=== PATIENT | female | born 1980 | race Caucasian/White ===

== ENCOUNTER 2017-06-17 16:22 | Inpatient (IN) | payer OTHER ==
--- NOTE | 2017-06-17 20:20 | HP ---
CIWA Score - CIWA Score Nausea/Vomitin Muscle Tremors: 3 Anxiety: 3 Agitation: 2 Paroxysmal Sweats: 2 Orientation: 0-Oriented Tacttile Disturbances: 2-Mild Itch/Numbness/Burn Auditory Disturbances: 2-Mild Harshness/Frighten Visual Disturbances: 2-Mild Sensitivity Headache: 2-Mild CIWA-Ar Total Score: 20 Admission ROS BHS - HPI Chief Complaint: DEPENDENT ON ETOH ONLY Allergies/Adverse Reactions: Allergies Allergy/AdvReac Type Severity Reaction Status Date / Time No Known Allergies Allergy Verified 06/17/17 20:25 Exam Limitations: No Limitations - Ebola screening Have you traveled outside of the country in the last 21 days: No Have you had contact with anyone from an Ebola affected area: No Have you been sick,other than usual withdrawal symptoms: No Do you have a fever: No - Review of Systems Constitutional: See HPI, Malaise, Weakness EENT: reports: See HPI Respiratory: reports: See HPI Cardiac: reports: See HPI, Syncope GI: reports: See HPI, Nausea, Abdominal cramping : reports: See HPI Musculoskeletal: reports: See HPI, Muscle Pain, Muscle Weakness Integumentary: reports: See HPI, Flushing, Sweating Neuro: reports: See HPI, Headache, Tremors, Weakness Endocrine: reports: See HPI Hematology: reports: See HPI Psychiatric: reports: Judgement Intact, Orientated x3, Anxious, Depressed Patient History - Patient Medical History Hx Seizures: (NO BUT EPISODES OF SYNCOPE SEC. TO ETOH) Hx Liver Disease: Yes (H/O: ELEVATED LIVER ENZYMES) Hx Human Immunodeficiency Virus (HIV): No Hx Hepatitis C: No Hx Depression: Yes (AND ANXIETY) Hx Suicide Attempt: Yes (X 3) Other Medical History: PANIC ATTACKS - Patient Surgical History Past Surgical History: Yes Hx Section: Yes (X 1 IN 2011) - Reproductive History Patient is a Female of Child Bearing Age (11 -55 yrs old): Yes Last Menstrual Period: 06/04/17 Patient : No - Smoking Cessation Smoking history: Current every day smoker Have you smoked in the past 12 months: Yes Aproximately how many cigarettes per day: 10 Hx Chewing Tobacco Use: No Initiated information on smoking cessation: Yes 'Breaking Loose' booklet given: 06/17/17 - Substance & Tx. History Hx Alcohol Use: Yes Hx Substance Use: No Substance Use Type: Alcohol Hx Substance Use Treatment: Yes - Substances Abused Alcohol Route: Oral Frequency: Daily Amount used: VODKA 3/4 OF A L/D Age of first use: 15 Date of Last Use: 06/17/17 Family Disease History - Family Disease History Family History: Denies Admission Physical Exam [facility] - Physical General Appearance: Yes: No Apparent Distress, Nourished, Appropriately Dressed , Alcohol on Breath, Tremorous, Sweating, Anxious HEENTM: Yes: Hearing grossly Normal, Normocephalic, Normal Voice, MAD[place], Pharynx Normal Respiratory: Yes: Chest Non-Tender, Lungs Clear, Normal Breath Sounds, No Respiratory Distress, No Accessory Muscle Use Neck: Yes: No masses,lesions,Nodules, Supple, Trachea in good position Breast: Yes: Breast Exam Deferred, Axillae without masses Cardiology: Yes: Regular Rhythm, S1, S2, Tachycardia Abdominal: Yes: Normal Bowel Sounds, Non Tender, Flat, Soft Back: Yes: Normal Inspection Musculoskeletal: Yes: full range of Motion, Gait Steady, Pelvis Stable, Muscle Pain, Muscle weakness Extremities: Yes: Normal Capillary Refill, Normal Range of Motion, Non-Tender, Tremors Neurological: Yes: Fully Oriented, Alert, Motor Strength 5/5, Normal Response, Depressed Affect Integumentary: Yes: Warm, Moist Lymphatic: Yes: Within Normal Limits - Diagnostic (1) EtOH dependence Current Visit: Yes Status: Acute (2) Nicotine dependence Current Visit: Yes Status: Chronic Qualifiers: Nicotine product type: cigarettes Substance use status: uncomplicated Qualified Code(s): F17.210 - Nicotine dependence, cigarettes, uncomplicated (3) Anxiety and depression Current Visit: Yes Status: Chronic (4) Panic attacks Current Visit: Yes Status: Chronic Cleared for Admission [facility] - Detox or Rehab [facility] Level of Care: Medically Managed Detox Regimen/Protocol: Librium [facility] Breath Alcohol Content Breath Alcohol Content: 0.375 Vital Signs - Vital Signs Vital Signs Refused: No Temperature: 97.6 F Temperature Source: Oral Pulse Rate: 110 Respiratory Rate: 20 Blood Pressure: 124/86 BP Location: Left Arm Blood Pressure Position: Sitting - Height Height: 5 ft 6 in - Weight Weight: 134 lb Weight Measurement Method: Standing Scale Body Mass Index (BMI): 21.6 Urine Pregancy Test - Test Device Lot Number: [id number] Expiration Date: 12/30/18 - Control Horizontal Line in Upper Control Window?: Yes - Result Urine Test Results: Negative- NO Line Present Urine Drug Screen - Test Device Lot Number: [id number] Expiration Date: 03/01/19 - Control Is Test Valid: Yes - Results Drug Screen Negative: Yes
[2017-06-17 20:37] VITALS: BMI 21.6
[2017-06-17] MEDS ORDERED: LOPERAMIDE HCL 2 MG CAPSULE PO PRN (20:38)
[2017-06-17] MEDS ORDERED: diphenhydrAMINE HCL 50 MG CAPSULE PO PRN (20:38)
[2017-06-17] MEDS ORDERED: MAGNESIUM HYDROX 2400MG/30ML ORAL SUSPENSION 30 ML CUP PO PRN (20:38)
[2017-06-17] MEDS ORDERED: ACETAMINOPHEN 325 MG TABLET (FP) PO PRN (20:38)
[2017-06-17] MEDS ORDERED: IBUPROFEN 400 MG TABLET (FP) PO PRN (20:38)
[2017-06-17] MEDS ORDERED: MAG HYDROX/AL HYDROX/SIMETH 30 ML UNIT-DOSE CUP PO PRN (20:38)
[2017-06-17] MEDS ORDERED: NICOTINE POLACRILEX 2 MG GUM BUC PRN (20:38)
[2017-06-17] MEDS ORDERED: guaiFENesin/D-METHORPHAN HB 10 ML UNIT-DOSE CUPS PO PRN (20:38)
[2017-06-17] MEDS ORDERED: MAGNESIUM CITRATE 300 ML BOTTLE PO PRN (20:38)
[2017-06-17] MEDS ORDERED: P-EPHED 60MG/TRIPROLIDI 2.5MG TABLET PO PRN (20:38)
[2017-06-17] MEDS ORDERED: MENTHOL/PHENOL 1 EACH UD MM PRN (20:38)
[2017-06-17] MEDS: THIAMINE HCL 100 MG TABLET (FP) PO SCH (22:53)
[2017-06-17] MEDS: chlordiazePOXIDE HCL 25 MG CAPSULE PO SCH (22:53)
[2017-06-18] MEDS: chlordiazePOXIDE HCL 25 MG CAPSULE PO SCH ×4 (06:02→22:40)
[2017-06-18 10:33] LABS: MCH 32.7 pg (25.7-33.7); MCHC 33.3 g/dl (32.0-36.0); MEAN CELL VOLUME 98.1 fl (80-96); MEAN PLT VOLUME 7.6 fl (7.5-11.1); PLATELET COUNT 253 K/MM3 (134-434); RDW 15.8 % (11.6-15.6); WHITE BLOOD COUNT 4.7 K/mm3 (4.0-10.0)
--- NOTE | 2017-06-18 10:34 | PN ---
[facility] CIWA - CIWA Score Nausea/Vomitin-Mild Nausea/No Vomiting Muscle Tremors: 4-Moderate,w/Arms Extend Anxiety: 4-Mod. Anxious/Guarded Agitation: 3 Paroxysmal Sweats: 3 Orientation: 0-Oriented Tacttile Disturbances: 0-None Auditory Disturbances: 0-None Visual Disturbances: 0-None Headache: 0-None Present CIWA-Ar Total Score: 15 BHS Progress Note (SOAP) Subjective: Anxiety,tremors,sweating,interrupted sleep,restless Objective: 06/18/17 10:34 Vital Signs - 8 hr 06/18/17 06/18/17 03:30 06:41 Temperature 96.1 F L Pulse Rate 76 Respiratory 18 18 Rate Blood Pressure 101/62 Laboratory Last Values WBC 4.7 K/mm3 (4.0-10.0) 06/18/17 07:30 RBC 3.93 M/mm3 (3.60-5.2) 06/18/17 07:30 Hgb 12.8 GM/dL (10.7-15.3) 06/18/17 07:30 Hct 38.6 % (32.4-45.2) 06/18/17 07:30 MCV 98.1 fl (80-96) H 06/18/17 07:30 MCH 32.7 pg (25.7-33.7) 06/18/17 07:30 MCHC 33.3 g/dl (32.0-36.0) 06/18/17 07:30 RDW 15.8 % (11.6-15.6) H 06/18/17 07:30 Plt Count 253 K/MM3 (134-434) 06/18/17 07:30 MPV 7.6 fl (7.5-11.1) 06/18/17 07:30 labs noted Assessment: 06/18/17 10:34 Withdrawal sx. Plan: Continue detox
[2017-06-18 10:46] LABS: ALBUMIN 3.7 g/dl (3.4-5.0); ALK PHOS 43 U/L (45-117); ANION GAP 8 (8-16); BILIRUBIN,TOTAL 0.3 mg/dL (0.2-1.0); CALCIUM 8.2 mg/dL (8.5-10.1); CO2 26 mmol/L (21-32); CREATININE 0.8 mg/dL (0.55-1.02); GLUCOSE,RANDOM 81 mg/dL (74-106); SGOT/AST 110 U/L (15-37); SGPT/ALT 111 U/L (12-78); TOT PROT 6.6 g/dl (6.4-8.2)
[2017-06-18] MEDS: PRENATAL VITAMINS W/ FOLIC ACID TABLET (FP) PO SCH (10:50)
[2017-06-18] MEDS: NICOTINE 14 MG/24 HOURS TOPICAL PATCH TD SCH (10:51)
[2017-06-18] MEDS: hydrOXYzine PAMOATE 25 MG CAPSULE (FP) PO PRN (10:53)
[2017-06-18 11:10] LABS: HIV 1 & 2 AB NEGATIVE; HIV 1 AGp24 NEGATIVE
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
[2017-06-18 12:50] LABS: URINE APPEARANCE SLCLOUDY; URINE BILIRUBIN NEGATIVE (NEGATIVE); URINE BLOOD 1+ (NEGATIVE); URINE COLOR YELLOW; URINE GLUCOSE (UA) NEGATIVE (NEGATIVE); URINE KETONE NEGATIVE (NEGATIVE); URINE LEUK ESTERASE NEGATIVE (NEGATIVE); URINE NITRITE NEGATIVE (NEGATIVE); URINE PROTEIN NEGATIVE (NEGATIVE); URINE UROBILINOGEN NEGATIVE mg/dL (0.2-1.0)
[2017-06-18 12:57] LABS: URINE HYALINE CAST 5 /lpf; URINE MUCUS MODERATE; URINE RBC 1 /hpf (0-3); URINE WBC 2 /hpf (3-5)
[2017-06-18] MEDS: ZOLPIDEM TARTRATE 5 MG TABLET PO PRN (22:40)
[2017-06-18] MEDS: THIAMINE HCL 100 MG TABLET (FP) PO SCH (22:40)
[2017-06-19] MEDS: chlordiazePOXIDE HCL 25 MG CAPSULE PO SCH ×3 (05:56→17:09)
[2017-06-19] MEDS: PRENATAL VITAMINS W/ FOLIC ACID TABLET (FP) PO SCH (10:53)
--- NOTE | 2017-06-19 11:07 | PN ---
[facility] CIWA - CIWA Score Nausea/Vomitin-No Nausea/No Vomiting Muscle Tremors: 4-Moderate,w/Arms Extend Anxiety: 4-Mod. Anxious/Guarded Agitation: 4-Moderately Restless Paroxysmal Sweats: 3 Orientation: 0-Oriented Tacttile Disturbances: 0-None Auditory Disturbances: 0-None Visual Disturbances: 0-None Headache: 0-None Present CIWA-Ar Total Score: 15 BHS Progress Note (SOAP) Subjective: anxiety sweats shakes interrupted sleep Objective: 06/19/17 11:05 Vital Signs Temperature 97.2 F L 06/19/17 10:24 Pulse Rate 73 06/19/17 10:24 Respiratory Rate 16 06/19/17 10:24 Blood Pressure 107/61 06/19/17 10:24 O2 Sat by Pulse Oximetry (%) Laboratory Tests 06/18/17 06/18/17 06/18/17 07:30 07:30 07:30 WBC 4.7 RBC 3.93 Hgb 12.8 Hct 38.6 MCV 98.1 H MCH 32.7 MCHC 33.3 RDW 15.8 H Plt Count 253 MPV 7.6 Sodium 139 Potassium 3.8 Chloride 105 Carbon Dioxide 26 Anion Gap 8 BUN 16 Creatinine 0.8 Creat Clearance w eGFR > 60 Random Glucose 81 Calcium 8.2 L Total Bilirubin 0.3 AST 110 H ALT 111 H Alkaline Phosphatase 43 L Total Protein 6.6 Albumin 3.7 Urine Color Urine Appearance Urine pH Ur Specific [place] Urine Protein Urine Glucose (UA) Urine Ketones Urine Blood Urine Nitrite Urine Bilirubin Urine Urobilinogen Urine RBC Urine WBC Hyaline Casts Urine Mucus RPR Titer Nonreactive HIV 1&2 Antibody Screen HIV P24 Antigen 06/18/17 06/18/17 07:30 09:55 WBC RBC Hgb Hct MCV MCH MCHC RDW Plt Count MPV Sodium Potassium Chloride Carbon Dioxide Anion Gap BUN Creatinine Creat Clearance w eGFR Random Glucose Calcium Total Bilirubin AST ALT Alkaline Phosphatase Total Protein Albumin Urine Color Yellow Urine Appearance Slcloudy Urine pH 5.0 Ur Specific [place] >= 1.030 H Urine Protein Negative Urine Glucose (UA) Negative Urine Ketones Negative Urine Blood 1+ H Urine Nitrite Negative Urine Bilirubin Negative Urine Urobilinogen Negative Urine RBC 1 Urine WBC 2 Hyaline Casts 5 Urine Mucus Moderate RPR Titer HIV 1&2 Antibody Screen Negative HIV P24 Antigen Negative elevated ast/alt tylenol d/c aaox3 ambulating no acute distress repeat ast and alt Assessment: 06/19/17 11:06 withdrawals sw Plan: continue detox increase fluids f/u pending labs ordered
[2017-06-19] MEDS: chlordiazePOXIDE HCL 25 MG CAPSULE PO PRN ×2 (12:28→19:19)
[2017-06-19] MEDS: NICOTINE 14 MG/24 HOURS TOPICAL PATCH TD SCH (12:29)
[2017-06-19] MEDS: hydrOXYzine PAMOATE 25 MG CAPSULE (FP) PO PRN ×2 (15:43→19:19)
--- NOTE | 2017-06-19 17:01 | EKG ---
Test Reason : Blood Pressure : / mmHG Vent. Rate : 110 BPM Atrial Rate : 110 BPM P-R Int : 134 ms QRS Dur : 082 ms QT Int : 332 ms P-R-T Axes : 074 082 073 degrees QTc Int : 449 ms SINUS TACHYCARDIA NONSPECIFIC T WAVE ABNORMALITY ABNORMAL ECG NO PREVIOUS ECGS AVAILABLE Confirmed by JOSE LUIS BOYD MD ([id number]) on 06/19/2017 5:01:29 PM Referred By: Confirmed By:JOSE LUIS BOYD MD
[2017-06-19] MEDS: ZOLPIDEM TARTRATE 5 MG TABLET PO PRN (22:34)
[2017-06-19] MEDS: THIAMINE HCL 100 MG TABLET (FP) PO SCH (22:34)
[2017-06-19] MEDS: chlordiazePOXIDE 5 MG CAPSULE PO SCH (22:34)
[2017-06-20] MEDS: chlordiazePOXIDE 5 MG CAPSULE PO SCH ×3 (05:56→17:01)
--- NOTE | 2017-06-20 10:01 | PN ---
BHS Progress Note (SOAP) Subjective: nausa, sweats, interrupted sleep, anxiety, tremors Objective: 06/20/17 09:59 Vital Signs - 24 hr 06/19/17 06/19/17 06/19/17 10:24 14:00 18:01 Temperature 97.2 F L 97.3 F L 94.3 F L Pulse Rate 73 68 75 Respiratory 16 18 18 Rate Blood Pressure 107/61 104/61 106/66 06/19/17 06/20/17 06/20/17 21:28 00:30 06:00 Temperature 97.6 F 97.3 F L Pulse Rate 86 72 Respiratory 18 18 16 Rate Blood Pressure 117/72 105/66 Laboratory Tests 06/18/17 06/18/17 06/18/17 07:30 07:30 07:30 WBC 4.7 RBC 3.93 Hgb 12.8 Hct 38.6 MCV 98.1 H MCH 32.7 MCHC 33.3 RDW 15.8 H Plt Count 253 MPV 7.6 Sodium 139 Potassium 3.8 Chloride 105 Carbon Dioxide 26 Anion Gap 8 BUN 16 Creatinine 0.8 Creat Clearance w eGFR > 60 Random Glucose 81 Calcium 8.2 L Total Bilirubin 0.3 AST 110 H ALT 111 H Alkaline Phosphatase 43 L Total Protein 6.6 Albumin 3.7 Urine Color Urine Appearance Urine pH Ur Specific [place] Urine Protein Urine Glucose (UA) Urine Ketones Urine Blood Urine Nitrite Urine Bilirubin Urine Urobilinogen Urine RBC Urine WBC Hyaline Casts Urine Mucus RPR Titer Nonreactive HIV 1&2 Antibody Screen HIV P24 Antigen 06/18/17 06/18/17 07:30 09:55 WBC RBC Hgb Hct MCV MCH MCHC RDW Plt Count MPV Sodium Potassium Chloride Carbon Dioxide Anion Gap BUN Creatinine Creat Clearance w eGFR Random Glucose Calcium Total Bilirubin AST ALT Alkaline Phosphatase Total Protein Albumin Urine Color Yellow Urine Appearance Slcloudy Urine pH 5.0 Ur Specific [place] >= 1.030 H Urine Protein Negative Urine Glucose (UA) Negative Urine Ketones Negative Urine Blood 1+ H Urine Nitrite Negative Urine Bilirubin Negative Urine Urobilinogen Negative Urine RBC 1 Urine WBC 2 Hyaline Casts 5 Urine Mucus Moderate RPR Titer HIV 1&2 Antibody Screen Negative HIV P24 Antigen Negative Assessment: 06/20/17 10:00 withdrawal sx Plan: cont detox, fluids, encourage ambulation
[2017-06-20 10:12] LABS: SGOT/AST 57 U/L (15-37); SGPT/ALT 77 U/L (12-78)
[2017-06-20] MEDS: PRENATAL VITAMINS W/ FOLIC ACID TABLET (FP) PO SCH (10:44)
[2017-06-20] MEDS: NICOTINE 14 MG/24 HOURS TOPICAL PATCH TD SCH (10:45)
[2017-06-20] MEDS: hydrOXYzine PAMOATE 25 MG CAPSULE (FP) PO PRN ×2 (10:45→20:14)
[2017-06-20] MEDS: ZOLPIDEM TARTRATE 5 MG TABLET PO PRN (22:34)
[2017-06-20] MEDS: THIAMINE HCL 100 MG TABLET (FP) PO SCH (22:34)
[2017-06-20] MEDS: chlordiazePOXIDE HCL 10 MG CAPSULE PO SCH (22:34)
[2017-06-21] MEDS: chlordiazePOXIDE HCL 10 MG CAPSULE PO SCH (06:18)
--- NOTE | 2017-06-21 09:36 | DS ---
[facility] Detox Discharge Summary Admission Date: 06/17/17 Discharge Date: 06/21/17 - History Present History: Alcohol Dependence - Physical Exam Results Vital Signs: Vital Signs Temperature 97.6 F 06/21/17 06:42 Pulse Rate 64 06/21/17 06:42 Respiratory Rate 16 06/21/17 06:42 Blood Pressure 91/64 06/21/17 06:42 O2 Sat by Pulse Oximetry (%) - Treatment Hospital Course: Detox Protocol Followed, Detoxed Safely, Responded well, Discharged Condition Good, Rehab Referral Accepted - Medication Discharge Medications: Ambulatory Orders Fluoxetine HCl [Prozac -] 40 mg PO DAILY 06/17/17 - Diagnosis (1) Alcohol dependence with uncomplicated withdrawal Current Visit: Yes Status: Chronic (2) Nicotine dependence Current Visit: Yes Status: Chronic Qualifiers: Nicotine product type: cigarettes Substance use status: uncomplicated Qualified Code(s): F17.210 - Nicotine dependence, cigarettes, uncomplicated - AMA Did Patient Leave Against Medical Advice: No (out patient rehab)
[2017-06-21 10:29] VITALS: BP 125/76; PULSE 94; TEMP 99
== END 2017-06-21 09:33 | disposition home or self-care (01) | DRG 775 ==
LOC: YASAS 16:22 → Y6N 20:38
PROVIDERS: ADMIT Internal Medicine; ATTEND Internal Medicine
PROC: HZ2ZZZZ Detoxification Services for Substance Abuse Treatment (ICD-10-PCS; principal; 2017-06-17)
DX: F10.230 Alcohol dependence with withdrawal, uncomplicated (principal); F17.210 Nicotine dependence, cigarettes, uncomplicated; F33.1 Major depressive disorder, recurrent, moderate; F41.8 Other specified anxiety disorders
CPT/HCPCS: 36415; 80053; 81003; 81015; 84450; 84460; 85027; 86593; 87389; 93005; 93010